=== PATIENT | male | born 1995 | race Caucasian/White ===

== ENCOUNTER 2021-03-02 14:32 | Inpatient (IN) | payer SELFPAY ==
[2021-03-02 15:21] VITALS: RESP 20
[2021-03-02 22:00] VITALS: BP 110/67; PULSE 86; RESP 18; TEMP 37; O2SAT 98
[2021-03-03 06:00] VITALS: BP 113/67; PULSE 95; RESP 17; TEMP 36.7; O2SAT 98
--- NOTE | 2021-03-03 13:43 | P.HP_ITS ---
Providers/Chief Complaint Admitting Physician: Cristobal Mireles MD Chief Complaint: SI HPI NPU History of Present Illness NIK SERNA is a 26 year old male who presented to an outside hospital after an ingestion of different pills and a significant amount of alcohol endorsing depression and suicidality, and with a substantial suicide note detailing goodbyes and sadness, etc. He was ultimately transferred to [facility] and admitted to the neuropsychiatric unit for definitive treatment of those issues. When the outside providers discussed the suicide note and everything with Nik, he denied being suicidal and he was ultimately put on a 96-hour hold. He presents today reporting that he has never had inpatient psychiatric care, he has never been on psychiatric medication, and his only therapy was when he met with a therapist, as he was in the courts trying to get 50/50 rights to his daughter. He reports that was only for a session or two. He does not smoke cigarettes. He says he drinks alcohol rarely. He denies marijuana, or any other illicit drugs. He has never been to rehab and never had a DUI. He reports that he had a day off and he was thinking about having a little bit of drinks, and that turned into significant drinking, and then the pills came, and he says he has never done that before. He has no explanation for why he did that. He is now saying he wants to go home. He is very insistent and very pressuring to be discharged immediately. There is no description of the 96-hour hold, and its process would stop him from continuing to insist that the best thing for him would be to go home and be with his family. We explained to him the process and that given the note and its specificity concerns, they are significant enough to continue his inpatient stay and gain collateral information on how safe it would be to discharge him. His blood alcohol was quite high when he presented to the outside hospital, and he reports no recollection of writing a suicide note. He denies ever having any suicide attempts or completion in his life. PSYCHIATRIC HISTORY: As above. SUBSTANCE ABUSE HISTORY: As above. FAMILY HISTORY: He denied any mental health, addiction, suicide attempts, or completions in his family. DEVELOPMENTAL HISTORY: He denies any issues with his mom?s with him nor with the or delivery. He learned to walk and talk mostly on time, but he feels like he may have not spoken until he was about 3. He was in speech therapy due to what he indicates as a speech impediment. He did have learning support with about a year of reading at one point in his life. PSYCHOSOCIAL HISTORY: His mother and father were together when he was born, and they remain together. He has two older sisters that are products of that same union. Neither parents have any other children. He reports his childhood was a good Buddhist upbringing. He denies emotional, physical, or sexual abuse. He graduated from high school. He did get his associates degree and an additional year of college after that. He endorses being a heterosexual with the longest relationship being two years. He has never been . He has one child that is three years old. He has never been in the , and he endorses being a Buddhist. 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 He lives in a condo alone, but he reports when he discharges from here, he will stay with his parents to get stable. LEGAL HISTORY: He has been in longterm one time for three days. It was related to drugs found in his room, but they were his roommates, and his charges were expunged once they were able to identify that, as he had negative drug screen for the substances that were there. MEDICAL HISTORY: He denies any significant medical concerns. MENTAL STATUS EXAMINATION: This is a tall, overweight, white male, with adequate dress, grooming, and eye contact. No abnormal movements. Cooperative with exam in mild distress. Speech was slightly increased rate, normal volume. Mood described as good; affect congruent. Thought process, organized. Thought content: patient denied any suicidal or homicidal ideation, there were no delusions reported or noted, patient denied any auditory or visual hallucinations. Attention, concentration, and memory appear intact but were not formally tested. He is alert and oriented times three. Insight and judgment appear fair currently. Impulse control limited. ASSESSMENT AND DIAGNOSIS: Meds NPU Home Medications Medication Instructions Recorded Confirmed Last Taken Type No Known Home Medications 03/02/21 03/02/21 Unknown History Allergies Allergy/AdvReac Type Severity Reaction Status Date / Time No Known Allergies Allergy Verified 03/02/21 15:18 Vitals/I&O/Wt Last Vital Signs Temp 98.6 F 03/03/21 14:00 Pulse 87 03/03/21 14:00 Resp 20 H 03/03/21 14:00 BP 105/71 03/03/21 14:00 Pulse Ox 97 03/03/21 14:00 Weight last 48 hrs Weight 85.275 kg A&P Assessment and plan (1) Attempted suicide: Status: Acute (2) Alcohol use: Status: Acute (3) Depression: Status: Acute Additional A&P Information This is a 26 year old, white male, with a limited history of mental health or addiction issues, which it is unclear if he is being fully accurate with that, as he seems very desirous to leave, so it is unclear whether he would be fully revealing on his possible addiction history, who presents denying the need for any inpatient services, but having been put on a 96-hour hold after an intentional ingestion along with significant alcohol ingestion and a lengthy suicide note that he denies recollection of. 1. Continue current medication. We will work with him to see if there is any need for initiation of medication. 2. Encourage individual, group, and milieu therapy. 3. Continue q-15 minute checks for safety. 4. Encourage sober liver treatment after discharge at the highest level of care to which he is willing to commit. 5. We will evaluate and get collateral information to determine safety for discharge. Involuntary Hold Information 96 Hour Hold: 96 Hour Involuntary Admission: Yes Attestations NPU Medical Necessity Statement*: Inpatient hospitalization is medically necessary and the clinically appropriate intervention, at this time. We will monitor medications and make changes as indicated. Patient will be in the hospital for over two midnights. Likely length of stay is two to four days. Coding Level of Care Code Acute Expansion Joint Builder for g Fwd Diagnoses Attempted suicide T14.91XA Alcohol use Z72.89 Depression F32.9
[2021-03-03 14:00] VITALS: BP 105/71; PULSE 87; RESP 20; TEMP 37; O2SAT 97
[2021-03-03 21:47] VITALS: BP 110/63; PULSE 95; RESP 20; TEMP 37.2; O2SAT 97
[2021-03-04 05:51] VITALS: BP 100/68; PULSE 94; RESP 20; TEMP 37.1; O2SAT 96
[2021-03-04 14:00] VITALS: BP 104/59; PULSE 86; RESP 18; TEMP 36.2; O2SAT 98
--- NOTE | 2021-03-04 18:33 | PM.NPN ---
Subjective NPU Subjective: Interval history: Nik presents today reporting that he understands that he makes mistakes and he does want to get things better. He was able to read his suicide note and I think again selective into what our concerns are. He was able to review his plan that he and his family are instituting to try to get things a better place before he is alone again and reportedly his mother is going to take him to their place while he is working on these issues. We discussed the fact that he was the one that chose to drink this large amount of alcohol and is not something he normally does and there is some reason behind that he needs to figure out what led to the choices that led to him having this supposed blackout. His mother expressed concern about the situation but also gave some of the logistical plans and considerations in making for his safety. We discussed possibility of discharge tomorrow. Mental Status Exam MSE Comments: This is a tall, overweight, white male, with adequate dress, grooming, and eye contact. No abnormal movements. Cooperative with exam in no acute distress. Speech was more normal rate, and volume. Mood described as good; affect congruent. Thought process, organized. Thought content: patient denied any suicidal or homicidal ideation, there were no delusions reported or noted, patient denied any auditory or visual hallucinations. Attention, concentration, and memory appear intact but were not formally tested. He is alert and oriented times three. Insight and judgment appear fair currently. Impulse control limited, but improving. Vitals/I&O/Wt Last Vital Signs Temp 98.8 F 03/04/21 20:09 Pulse 103 H 03/04/21 20:09 Resp 18 03/04/21 20:09 BP 115/74 03/04/21 20:09 Pulse Ox 97 03/04/21 20:09 A&P Additional A&P Information (1) Attempted suicide: (2) Alcohol use: (3) Depression: Additional A&P Information This is a 26 year old, white male, with a limited history of mental health or addiction issues, which it is unclear if he is being fully accurate with that, as he seems very desirous to leave, so it is unclear whether he would be fully revealing on his possible addiction history, who presents denying the need for any inpatient services, but having been put on a 96-hour hold after an intentional ingestion along with significant alcohol ingestion and a lengthy suicide note that he denies recollection of. 1. Continue current medication. We will work with him to see if there is any need for initiation of medication. 2. Encourage individual, group, and milieu therapy. 3. Continue q-15 minute checks for safety. 4. Encourage sober liver treatment after discharge at the highest level of care to which he is willing to commit. 5. Will monitor till tomorrow given 96-hour hold and evaluate for discharge in the morning. Involuntary Hold Information 96 Hour Hold: 96 Hour Involuntary Admission: Yes Attestations NPU Medical Necessity Statement*: Inpatient hospitalization is medically necessary and the clinically appropriate intervention, at this time. We will monitor medications and make changes as indicated. Likely length of stay is 1-3 days. Coding Level of Care Code Acute Environmental Science Technician for Mariel Chadwick
[2021-03-04 20:09] VITALS: BP 115/74; PULSE 103; RESP 18; TEMP 37.1; O2SAT 97
--- NOTE | 2021-03-04 22:47 | PC.NURSE ---
PM Assessment Pt v/s are wnl, denies SI/HI, planning to discharge in the morning and stay with his parents upon release. PT mood is calm, speech pattern normal, content appropriate, actions/emotional display congruent. 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 RN provided teaching for responsible alcohol consumption, when to seek help, and to contact mocars if SI returns. Pt stated, I don't normally drink like that and I haven't ever blacked out.I don't remember writing the note in my chart. Pt states, I don't want to , this was a wake up call for me. Pt is cooperative, calm at this time, he did not require any PRN's this evening, and is currently laying in his bed resting. Will continue to observe pt behavior until morning shift arrives.
[2021-03-05 06:00] VITALS: BP 116/70; PULSE 102; RESP 17; TEMP 36.8; O2SAT 98
--- NOTE | 2021-03-05 08:43 | PM.NDC ---
Diagnoses at Discharge Discharge Diagnosis (1) Attempted suicide: Status: Acute (2) Alcohol use: Status: Acute (3) Depression: Status: Acute Reason for Visit Reason for Visit: SI Brief History: History of Present Illness NIK SERNA is a 26 year old male who presented to an outside hospital after an ingestion of different pills and a significant amount of alcohol endorsing depression and suicidality, and with a substantial suicide note detailing goodbyes and sadness, etc. He was ultimately transferred to [facility] and admitted to the neuropsychiatric unit for definitive treatment of those issues. When the outside providers discussed the suicide note and everything with Nik, he denied being suicidal and he was ultimately put on a 96-hour hold. He presents today reporting that he has never had inpatient psychiatric care, he has never been on psychiatric medication, and his only therapy was when he met with a therapist, as he was in the courts trying to get 50/50 rights to his daughter. He reports that was only for a session or two. He does not smoke cigarettes. He says he drinks alcohol rarely. He denies marijuana, or any other illicit drugs. He has never been to rehab and never had a DUI. He reports that he had a day off and he was thinking about having a little bit of drinks, and that turned into significant drinking, and then the pills came, and he says he has never done that before. He has no explanation for why he did that. He is now saying he wants to go home. He is very insistent and very pressuring to be discharged immediately. There is no description of the 96-hour hold, and its process would stop him from continuing to insist that the best thing for him would be to go home and be with his family. We explained to him the process and that given the note and its specificity concerns, they are significant enough to continue his inpatient stay and gain collateral information on how safe it would be to discharge him. His blood alcohol was quite high when he presented to the outside hospital, and he reports no recollection of writing a suicide note. He denies ever having any suicide attempts or completion in his life. PSYCHIATRIC HISTORY: As above. SUBSTANCE ABUSE HISTORY: As above. FAMILY HISTORY: He denied any mental health, addiction, suicide attempts, or completions in his family. DEVELOPMENTAL HISTORY: He denies any issues with his mom?s with him nor with the or delivery. He learned to walk and talk mostly on time, but he feels like he may have not spoken until he was about 3. He was in speech therapy due to what he indicates as a speech impediment. He did have learning support with about a year of reading at one point in his life. PSYCHOSOCIAL HISTORY: His mother and father were together when he was born, and they remain together. He has two older sisters that are products of that same union. Neither parents have any other children. He reports his childhood was a good Mandaen upbringing. He denies emotional, physical, or sexual abuse. He graduated from high school. He did get his associates degree and an additional year of college after that. He endorses being a heterosexual with the longest relationship being two years. He has never been . He has one child that is three years old. He has never been in the , and he endorses being a Mandaen. 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 He lives in a condo alone, but he reports when he discharges from here, he will stay with his parents to get stable. LEGAL HISTORY: He has been in correction one time for three days. It was related to drugs found in his room, but they were his roommates, and his charges were expunged once they were able to identify that, as he had negative drug screen for the substances that were there. MEDICAL HISTORY: He denies any significant medical concerns. Hospital Course Hospital Course Patient presented to the outside hospital endorsing having drank too much but ultimately denying lethality but with a suicide note an intentional ingestion. He was transferred to [facility] and ultimately admitted to the neuropsychiatric unit for definitive treatment of those issues on a 96-hour hold. On the unit he acclimated to the individual, group milieu therapies provided. He is initially quite resistant to the idea that he needed to be evaluated inpatient as he denied recollection of writing the note. Ultimately there was significant family involvement and the plan was unveiled to have family with him or him with family initially to ensure his safety while they assisted him in getting connected with services. He was not interested in initiating medication and showed modest improvement during the hospitalization. He was able to contract for safety prior to discharge. During the hospitalization, patient had routine laboratory studies which were within normal limits except for few outliers. Additionally there was a general medical evaluation which was also within normal limits and revealed no new acute processes. Discharge Summary: At the time of discharge, he denied psychosis or lethality. Mood and anxiety were well managed. Patient endorsed a plan to avoid all drugs of abuse and follow-up with the aftercare recommendations of the treatment team. Patient was evaluated and deemed to be absent credible lethality, and had achieved the maximum benefit from an inpatient hospitalization, so was discharged. Involuntary Hold Information 96 Hour Hold: 96 Hour Involuntary Admission: Yes Mental Status Exam MSE Comments: This is a tall, overweight, white male, with adequate dress, grooming, and eye contact. No abnormal movements. Cooperative with exam in no acute distress. Speech was more normal rate, and volume. Mood described as good; affect congruent. Thought process, organized. Thought content: patient denied any suicidal or homicidal ideation, there were no delusions reported or noted, patient denied any auditory or visual hallucinations. Attention, concentration, and memory appear intact but were not formally tested. He is alert and oriented times three. Insight and judgment appear fair currently. Impulse control limited, but improving. Discharge Data Vitals: Last Vital Signs Temp 98.3 F 03/05/21 06:00 Pulse 102 H 03/05/21 06:00 Resp 17 03/05/21 06:00 BP 116/70 03/05/21 06:00 Pulse Ox 98 03/05/21 06:00 Discharge Plan Discharge Patient Disposition: Home Condition: Stable Prescriptions: Continued No Known Home Medications RF: 0 Discharge Orders: Discharge Order (Routine); Ordered 03/05/21 Ordered By: Cristobal Mireles Discharge Diet: Regular Discharge Activity: Resume usual activity Patient Instructions: Opioid Safety Discharge Attestations NPU Time Spent in Discharge Care*: less than 30 min Specific Discharge Activities: Specific discharge activities: educating patient, discussing with case management rn/social workers/dc planners, documenting/other paperwork and evaluating patient/reviewing data Coding Level of Care Code Acute Chg FW DC note Diagnoses Attempted suicide T14.91XA Alcohol use Z72.89 Depression F32.9
[2021-03-05 08:55] VITALS: BP 116/70; PULSE 102; RESP 17; TEMP 36.8; O2SAT 98
--- NOTE | 2021-03-15 14:46 | PC.NURSE ---
FMLA and return to work paperwork was sent to Jaquelin lobo [phone] Fax # - [phone]. Copies mailed to Nik and sent to medical records to be scanned in the chart.
== END 2021-03-05 10:27 | disposition home or self-care (01) | DRG 881 ==
PROVIDERS: Admitting Provider Psychiatry & Neurology Psychiatry; Visit Provider Psychiatry & Neurology Psychiatry
DX: F32.9 Major depressive disorder, single episode, unspecified (principal); T14.91XA Suicide attempt, initial encounter; T50.912A Poisoning by multiple unspecified drugs, medicaments and biological substances, intentional self-harm, initial encounter; Z72.89 Other problems related to lifestyle